=== PATIENT | male | born 1970 | race Hispanic/Latino ===

== ENCOUNTER → 2017-05-04 | Day surgery (SDC) | payer OTHER ==
[2017-05-03 10:23] LABS: BASOPHILS % 0.4 % (0.0-1.0); EOSINOPHILS # (AUTO) 0.2 (0.0-0.4); EOSINOPHILS % 1.8 % (0.0-6.0); HEMATOCRIT 47.1 % (38.2-49.6); HEMOGLOBIN 16.2 g/dL (14.0-18.0); LYMPHOCYTES # (AUTO) 2.2 (1.0-3.2); LYMPHOCYTES % 25.3 % (18.0-39.1); MEAN CORPUSCULAR HEMOGLOBIN 32.7 pg (28-32); MEAN CORPUSCULAR HGB CONC 34.4 g/dL (31-35); MONOCYTES # (AUTO) 0.5 (0.2-0.8); MONOCYTES % 5.7 % (4.4-11.3); NEUTROPHILS # (AUTO) 5.7 (2.1-6.9); NEUTROPHILS % 66.6 % (38.7-80.0); PLATELET COUNT 249 x10e3/uL (140-360); RED BLOOD COUNT 4.96 x10e6/uL (4.3-5.7); RED CELL DISTRIBUTION WIDTH 11.9 % (11.7-14.4)
--- NOTE | 2017-05-03 11:13 | Diagnostic Imaging Report ---
PROCEDURE: X-RAY CHEST, TWO VIEWS COMPARISON: None. INDICATIONS: PRE OPERATIVE CHEST X-RAY FOR UMBILICAL HERNIA SURGERY FINDINGS: LUNGS: No consolidations or edema. PLEURA: No effusions or pneumothorax. HEART \T\ MEDIASTINUM: The heart is within normal size-limits. BONES \T\ SOFT TISSUES: No acute findings. CONCLUSION: No acute thoracic abnormality. Valdemar Ledbetter D.O. Dictated by: Valdemar Ledbetter D.O. on 05/03/2017 at 11:21 Electronically approved by: Valdemar Ledbetter D.O. on 05/03/2017 at 11:21
[~2017-05-04] MED LIST: ACETAMINOPHEN 1000 MG/100 ML IV ONE; ACETAMINOPHEN/CODEINE 300MG - 30MG TAB ONE; BACITRACIN 50,000 UNIT VIAL ONE; BUPIVACAINE HCL 0.5% INJ 30 ML VIAL INJ ONE; CEFAZOLIN SOD 2 GM/D5W 50ML 50 ML IV ONE; DEXAMETHASONE SOD PHOS INJ 4 MG/ML VIAL ONE; FENTANYL CITRATE/PF 100MCG/2 ML INJ ONE; KETOROLAC TROMETHAMINE 30 MG/ML VIAL ONE; LIDOCAINE HCL 2% LOCAL INJ 5 ML SDV VIAL INJ ONE; MIDAZOLAM HCL 2 MG/2 ML VIAL ONE; ONDANSETRON HCL INJ 2 MG/ML VIAL ONE; PHENYLEPHRINE HCL 1% 10 MG/ML VIAL ONE; PROPOFOL IV EMULSION 10 MG/ML 20 ML VIAL ONE; SEVOFLURANE INHAL SOLN 250 ML PEN BTL ONE
--- NOTE | 2017-05-04 08:06 | Operative Report ---
DATE OF PROCEDURE: May 04, 2017 PREOPERATIVE DIAGNOSIS: Supraumbilical hernia. POSTOPERATIVE DIAGNOSIS: Supraumbilical hernia. PROCEDURE PERFORMED: Repair of supraumbilical hernia with mesh. ASSEMBLY LINE UPHOLSTERER: None. ANESTHESIA: General. INDICATIONS AND FINDINGS: The patient is a 46-year-old male presenting with the complaints of painful bulge above his umbilicus. At surgery, the patient was found to have a hernia above the umbilicus. The fascial defect was approximately 2 x 2 cm. TECHNIQUE: After adequate general anesthesia with the patient in the supine position, the abdomen was prepped and draped in a sterile fashion with Oxford solution. A transverse incision was made above the umbilicus and carried down through subcutaneous tissue. The herniated mass was identified. It was dissected free from surrounding tissues down to the fascia and freed from the fascia throughout the circumference of the hernia defect. Herniated mass was then reduced beneath the fascia. Staying in the extraperitoneal position, the hernia was then repaired. A Marlex mesh was fashioned to appropriate size and soaked in antibiotic solution. It was placed beneath the fascia and sutured to the undersurface of the fascia with a running horizontal mattress suture of 0 Prolene. Sutures taken about 2 cm from the edge of the defect. Once the mesh was in place, the fascia was closed transversely over the mesh with a running suture of 0 Prolene. Hemostasis was seen to be adequate. The wound was infiltrated with 0.5% Marcaine. Subcutaneous tissues were then closed with a running suture of 3-0 Vicryl. Skin was closed with a running subcuticular suture of 4-0 Vicryl. Dermabond and sterile dressing were applied. The patient tolerated the procedure well. Estimated blood loss was less than 5 mL. There were no complications. All counts were correct. Patient was taken to the recovery room in satisfactory condition. Job#: [id number] LAURA
== END | disposition home or self-care (01) ==
LOC: OR 05:41
PROVIDERS: ATTEND Surgery
DX: K43.9 Ventral hernia without obstruction or gangrene (principal); F17.210 Nicotine dependence, cigarettes, uncomplicated; Z01.810 Encounter for preprocedural cardiovascular examination; Z01.812 Encounter for preprocedural laboratory examination; Z01.818 Encounter for other preprocedural examination; Z68.38 Body mass index [BMI] 38.0-38.9, adult
CPT/HCPCS: 36415; 49560; 49568; 71020; 85025; 93005; C1781; J1100; J1885; J2001; J2250; J2370; J2405